=== PATIENT | male | born 1950 | race Caucasian/White ===

== ENCOUNTER 2017-07-24 08:50 | Outpatient (CLI) | payer MEDICARE, OTHER | END 2017-07-24 08:51 | disposition home or self-care (01) | LOC: LAB.WCP 08:50 | PROVIDERS: ATTEND Family Medicine | DX: N39.0 Urinary tract infection, site not specified (principal) | CPT/HCPCS: 87077; 87086 ==

== ENCOUNTER 2019-07-22 14:47 | Outpatient (CLI) | payer MEDICARE, OTHER ==
[2019-07-22 16:19] VITALS: BP 128/80
--- NOTE | 2019-07-22 16:19 | SLEEP CARE CONSULTATION ---
Information from patient questionnaire entered by Miranda Grove. I have reviewed and concur with the information entered by Miranda Grove. This document represents the service I personally performed and the decisions made by me, Zacarias Poole MD, [facility]. History of Present Illness Reason for Visit: Previously diagnosed sleep apnea, sleep apnea on CPAP therapy, Re-establish care Duration of Symptoms: 20 YEARS Usual bedtime: 9:00 PM Time it takes to fall asleep: 10 MINUTES Snores at night: Yes Observed to quit breathing while asleep: Yes Sleeps alone due to snoring: No Number of times waking at night: 0 WITH CPAP Reasons for waking at night: reports: Bathroom Toss, Turn, or Twitch while sleeping: Yes Recalls having dreams: Yes Usually gets out of bed at: 6:00 AM Feels refreshed in the morning: No Morning headache: No Sleepy or fatigued during the day: No Ever fallen asleep while driving: No Takes day naps: No Dreams during day naps: No Prior sleep studies: Yes Year and Where: 2014 [facility] Additional HPI information: I had the pleasure of seeing Mr. Odell today regarding obstructive sleep apnea-hypopnea. As you know, he is a 69 year old gentleman who was diagnosed with the sleep-disordered breathing here in 2014. The AHI was 12.7. He was prescribed a CPAP device set at 9 cmH2O. He uses every night and all night. The compliance data show usage in 131 out of the past 180 nights, averaging 7.9 hours a night (the data were missing at the beginning of the year). The residual AHI is 1.8 and average time in large leak per day is 2 hours a night. He wears a full face mask. He gets his supplies from [employer] but his prescription ran out. He finds the treatment very beneficial. CPAP Compliance Data - Data Reviewed with Patient Average duration of nightly device use: 7H 53M Compliance rate %: 71.1 Current pressure setting (cmH2O): 9.0 Humidity settin Heated hose settin Subjective Initial [place] Sleepiness Scale score: 6 Past Medical History Past Medical History: reports: Hypertension Social History The patient's occupation is RETIRED. Patient is and lives in [place]. Have you smoked in the past 12 months: No Alcohol use: Yes Alcohol amount and frequency: 1 DRINK/WEEKLY Caffeine use: Yes Caffeine amount and frequency: 2 CUPS/DAY Family History Family history of sleep disordered breathing: No Allergies and Home Medications Drug allergies reviewed: Yes Home medication list reviewed: Yes Review of Systems Review of systems same as previous: Yes Weight loss over past 5 years: 20 Cardiovascular: reports: high blood pressure Ear/Nose/Throat: reports: tonsillectomy, wisdom teeth removed Endocrine: reports: thyroid disease Immunologic: reports: sneezing Physical Exam Vital signs obtained and entered by: Dr. Poole Blood Pressure: 128/80 Cuff size: long Heart Rate: 44 O2 Saturation: 97 Height: 6 ft Weight (kg): 200 lb Body Mass Index: 27.1 BMI Classification: Overweight Neck circumference: 16.25 HEENT: No craniofacial malformation Nostrils: patent to airflow Turbinates: normal Septum: midline Mouth and throat: narrow oropharynx Soft palate: long Hard palate: normal Uvula: normal Uvula visualization: 50% Mallampati Class II Tongue: normal in size Tonsils: small Chin and jaw: normal size and position Neck: normal w/o lymphadenopathy or thyromegaly Heart: regular rate and rhythm Lungs: clear bilaterally Abdomen: soft, non-tender Extremities: no edema or clubbing Neurologic: intact, no focal deficits Impression and Plan IMPRESSION: 1. Obstructive Sleep Apnea-Hypopnea Syndrome, mild, as previously diagnosed. The patient continues to have good treatment compliance. The current pressure setting appears effective and comfortable. The patient experiences improvement on the treatment. The air leak is high because he has not been replacing the mask cushion. Plan: 1. Prescription made for CPAP supplies. 2. Try newer full face masks, e.g. ResMed AirTouch F-20 full face mask, ResMed F30 full face mask, and Respironics DreamWear full face mask. 3. Attempt to lose weight. 4. Return for follow up in a year or earlier if there is any problem. I spent 100% of this 15 minute visit face to face with the patient with greater than 50% of this was spent time counseling the patient and coordination of care.
== END 2019-07-22 14:48 | disposition home or self-care (01) ==
LOC: SC 14:47
PROVIDERS: ATTEND Internal Medicine Pulmonary Disease
DX: G47.33 Obstructive sleep apnea (adult) (pediatric) (principal)
CPT/HCPCS: 99203; G0463; 99212

== ENCOUNTER 2020-12-09 10:11 | Emergency (ER) | payer MEDICARE, OTHER ==
[2020-12-09] MEDS ORDERED: ONDANSETRON 4 MG/2 ML VIAL IVP STA (10:37)
[2020-12-09] MEDS ORDERED: HYDROmorphone 1 MG/ML CARPUJECT IVP STA (10:37)
--- NOTE | 2020-12-09 10:40 | ED Physician Documentation ---
PD HPI ABD PAIN - Stated complaint Stated Complaint: VOMITING/STOMACH PX - Chief complaint Chief Complaint: Abd Pain - History obtained from History obtained from: Patient - Additional information Additional information: 70yo gentleman awoke around midnight with severe lower abdominal pain and vomiting. He felt like he could not have a bowel movement and used a suppository with a small amount of output. No history of abdominal surgeries. Last colonoscopy was about 10 years ago without pertinent positive findings per him. Review of Systems Ten Systems: 10 systems reviewed and negative Constitutional: reports: Reviewed and negative Nose: reports: Reviewed and negative Throat: reports: Reviewed and negative Cardiac: reports: Reviewed and negative PD PAST MEDICAL HISTORY - Past Medical History Past Medical History: Yes Cardiovascular: Hypertension, High cholesterol Endocrine/Autoimmune: HyPOthyroidism Other Past Medical History: Thyroid cancer - Past Surgical History Past Surgical History: No - Present Medications Home Medications: Ambulatory Orders Medication Instructions Recorded Confirmed Levothyroxine Sodium 250 mcg PO DAILY 12/09/20 12/09/20 [Levothyroxine] Lovastatin 100 mg PO DAILY 12/09/20 12/09/20 Timolol 0.25% Ophth Drops 1 drops LEFTEYE DAILY 12/09/20 12/09/20 [Timoptic 0.25% Ophth Drops] - Allergies Allergies/Adverse Reactions: Allergies Allergy/AdvReac Type Severity Reaction Status Date / Time No Known Drug Allergies Allergy Verified 12/09/20 10:23 - Social History Does the pt smoke?: No Smoking Status: Never smoker PD ED PE NORMAL - Vitals Vital signs reviewed: Yes - General General: Alert and oriented X 3 (He appears uncomfortable.) - HEENT HEENT: PERRL, EOMI - Neck Neck: Supple, no meningeal sign, No bony TTP - Cardiac Cardiac: RRR, No murmur - Respiratory Respiratory: No respiratory distress, Clear bilaterally - Abdomen Abdomen: Other (There is a small reducible but mildly tender umbilical hernia without skin changes. He has absent bowel tones. Minimal diffuse tenderness. No surgical signs.) - Back Back: No CVA TTP, No spinal TTP - Derm Derm: Normal color, Warm and dry - Extremities Extremities: No edema, No calf tenderness / cord - Neuro Neuro: Alert and oriented X 3, Normal speech - Psych Psych: Normal mood, Normal affect Results - Vitals Vitals: Vital Signs - 24 hr 12/09/20 12/09/20 12/09/20 10:18 10:39 11:16 Temperature 36.7 C Heart Rate 62 55 L 75 Respiratory 18 18 20 Rate Blood Pressure 210/104 H 188/97 H 153/87 H O2 Saturation 99 100 98 12/09/20 13:00 Temperature Heart Rate 65 Respiratory 18 Rate Blood Pressure 155/86 H O2 Saturation 94 Oxygen O2 Source Room air - Labs Labs: Laboratory Tests 12/09/20 12/09/20 12/09/20 10:35 10:35 10:35 WBC 9.2 RBC 5.21 Hgb 17.0 Hct 50.9 MCV 97.7 H MCH 32.6 H MCHC 33.4 RDW 12.3 Plt Count 240 MPV 10.6 Neut # (Auto) 7.9 H Lymph # (Auto) 0.9 L [place] # (Auto) 0.4 Eos # (Auto) 0.0 Baso # (Auto) 0.0 Absolute Nucleated RBC 0.00 Nucleated RBC % 0.0 Sodium 143 Potassium 3.9 Chloride 105 Carbon Dioxide 24 Anion Gap 14.0 H BUN 25 H Creatinine 1.4 H Estimated GFR (MDRD) 50 L Glucose 153 H Calcium 9.4 Total Bilirubin 1.5 H AST 18 ALT 17 Alkaline Phosphatase 71 Total Protein 7.6 Albumin 4.5 Globulin 3.1 Albumin/Globulin Ratio 1.5 Lipase 39 Urine Color YELLOW Urine Clarity CLEAR Urine pH 5.5 Ur Specific [place] 1.025 Urine Protein NEGATIVE Urine Glucose (UA) NEGATIVE Urine Ketones NEGATIVE Urine Occult Blood TRACE-INTA Urine Nitrite NEGATIVE Urine Bilirubin NEGATIVE Urine Urobilinogen 0.2 (NORMAL) Ur Leukocyte Esterase NEGATIVE Ur Microscopic Review NOT INDICATED Urine Culture Comments NOT INDICATED PD MEDICAL DECISION MAKING - ED course ED course: 70-year-old gentleman with acute severe lower abdominal pain. Pain was resolved after the administration of 1 mg of Dilaudid. He remained nontender on repeat evaluation. CT scanning demonstrates renal cyst and potential small bladder stones. No other acute pertinent positive findings. My suspicion is that potentially one of the bladder stones potentially briefly occluded the urethra causing acute urinary urinary retention which has since resolved. Departure - Departure Disposition: 01 Home, Self Care Clinical Impression: Abdominal pain Qualifiers: Abdominal location: generalized Qualified Code(s): R10.84 - Generalized abdominal pain Condition: Good Record reviewed to determine appropriate education?: Yes Instructions: Abdominal Pain Follow-Up: Supa Reno MD [Physician No Access] - Comments: Today that the likely cause of your abdominal pain was potentially the bladder s tones briefly obstructing your urine. The remainder of your work-up is negative. Return as needed for new or worsening symptoms and consider following up with the urologist. Discharge Date/Time: 12/09/20 14:11
[2020-12-09 10:42] LABS: BASOPHILS % (AUTO) 0.4 %; EOSINOPHILS % (AUTO) 0.3 %; LYMPHOCYTES # (AUTO) 0.9 10^3/uL (1.5-3.5); LYMPHOCYTES % (AUTO) 9.9 %; MEAN CORPUSCULAR HEMOGLOBIN 32.6 pg (27.0-31.0); MEAN CORPUSCULAR HGB CONC 33.4 g/dL (32.0-36.0); MEAN CORPUSCULAR VOLUME 97.7 fL (80.0-94.0); MEAN PLATELET VOLUME 10.6 fL (7.4-11.4); MONOCYTES # (AUTO) 0.4 10^3/uL (0.0-1.0); MONOCYTES % (AUTO) 3.8 %; NEUTROPHILS # (AUTO) 7.9 10^3/uL (1.5-6.6); NEUTROPHILS % (AUTO) 85.4 %; PLT - PLATELET COUNT 240 10^3/uL (130-450); RED BLOOD COUNT 5.21 10^6/uL (4.70-6.10); RED CELL DISTRIBUTION WIDTH 12.3 % (12.0-15.0); WHITE BLOOD COUNT 9.2 x10^3/uL (4.8-10.8)
[2020-12-09 10:47] LABS: BILIRUBIN,URINE NEGATIVE (NEGATIVE); GLUCOSE, URINE (UA) NEGATIVE (NEGATIVE); KETONES,URINE (UA) NEGATIVE (NEGATIVE); LEUKOCYTE ESTERASE, URINE NEGATIVE (NEGATIVE); NITRITE,URINE NEGATIVE (NEGATIVE); OCCULT BLOOD,URINE TRACE-INTA (NEGATIVE); PH,URINE 5.5 PH (5.0-7.5); PROTEIN,URINE NEGATIVE (NEGATIVE); UROBILINOGEN,URINE 0.2 (NORMAL) E.U./dL (NORMAL)
[2020-12-09 10:48] LABS: CLARITY,URINE CLEAR (CLEAR)
[2020-12-09 10:52] LABS: ALBUMIN 4.5 g/dL (3.2-5.5); ALBUMIN/GLOBULIN RATIO 1.5 (1.0-2.2); BILIRUBIN,TOTAL 1.5 mg/dL (0.2-1.0); CALCIUM 9.4 mg/dL (8.5-10.3); CREATININE 1.4 mg/dL (0.6-1.2); TOTAL PROTEIN 7.6 g/dL (6.7-8.2)
[2020-12-09] MEDS ORDERED: IOVERSOL 320 100 ML VIAL IVP ONE ×2 (10:53→13:38)
[2020-12-09] MEDS ORDERED: IOVERSOL 320 50 ML VIAL ONE (10:53)
[2020-12-09 13:04] VITALS: BP 155/86
--- NOTE | 2020-12-09 13:35 | CT Report ---
PROCEDURE: Abdomen/Pelvis W INDICATIONS: IV and PO if able, abd pain, ?sbo CONTRAST: IV CONTRAST: Optiray 320 ml: 100 PO CONTRAST: Optiray 320 ml50 TECHNIQUE: After the administration of nonionic contrast, 5 mm thick sections acquired from the diaphragms to th e symphysis. 5 mm thick coronal and sagittal reformats were acquired. For radiation dose reduction, the following was used: automated exposure control, adjustment of mA and/or kV according to patient size. COMPARISON: None. FINDINGS: Image quality: Excellent. ABDOMEN: Lung bases: Lung bases are clear. Heart size is normal. Solid organs: Liver and spleen are normal in size and enhancement. Gallbladder appears normal Bili chio system is non dilated. Pancreas enhances normally. No adrenal nodules. Kidneys demonstrate nor mal size and enhancement, without hydronephrosis. A pattern of peripelvic cysts is seen at each kidn ey, and no urinary tract stone or ureteral stone is found Peritoneum and bowel: Bowel loops demonstrate normal wall thickness and caliber. No free fluid or a ir. Nodes and vessels: No retroperitoneal or mesenteric adenopathy by size criteria. Aorta and inferior vena cava are normal in size. Miscellaneous: No ventral hernias. PELVIS: Genitourinary: Bladder wall thickness is normal. Miscellaneous: No inguinal hernias or adenopathy. At the posterior midline region of the bladder on supine positioning to central posterior layering 1 mm calculi can be seen. These are separate from t he distal ureters. Bones: No suspicious bony lesions. No vertebral body compression fractures. IMPRESSION: The kidneys bilaterally demonstrate a pattern of peripelvic cysts adjacent to the collec ting system of each kidney, which shows no evidence of collecting system calculi. There is a finding of 2 very small calculi within the bladder lumen, chronicity uncertain. These each measure approximately 1 mm in diameter, and are not associated with bladder inflammation. The bladde r is not distended. Reviewed by: Lavell Joyner MD on 12/09/2020 1:34 PM PST Approved by: Lavell Joyner MD on 12/09/2020 1:34 PM PST Station ID: [id number]
[2020-12-09] MEDS ORDERED: IOVERSOL 320 50 ML VIAL PO ONE (13:39)
== END 2020-12-09 14:11 | disposition home or self-care (01) ==
LOC: ED 10:11
DX: N21.0 Calculus in bladder (principal); R10.30 Lower abdominal pain, unspecified; I10 Essential (primary) hypertension
CPT/HCPCS: 36415; 74177; 80053; 81003; 83690; 85025; 96374; 96375; 99284; J1170; Q9967; 81001; 87086

== ENCOUNTER 2024-01-22 09:14 | Outpatient (CLI) | payer OTHER, MEDICARE | END 2024-01-22 23:59 | disposition critical access hospital (66) | LOC: EMS 09:14 | DX: S80.812A Abrasion, left lower leg, initial encounter (principal); W32.0XXA Accidental handgun discharge, initial encounter; Y92.89 Other specified places as the place of occurrence of the external cause | CPT/HCPCS: A0425; A0429 ==

== ENCOUNTER 2024-01-22 09:37 | Emergency (ER) | payer OTHER, MEDICARE ==
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
[2024-01-22 09:53] VITALS: O2SAT 100
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
[2024-01-22 11:10] VITALS: BP 138/82
== END 2024-01-22 11:13 | disposition home or self-care (01) ==
LOC: ED 09:37
DX: S91.042A Puncture wound with foreign body, left ankle, initial encounter (principal); W32.0XXA Accidental handgun discharge, initial encounter; Y93.89 Activity, other specified; Y92.89 Other specified places as the place of occurrence of the external cause; Y99.0 Civilian activity done for income or pay
CPT/HCPCS: 99283